=== PATIENT | female | born 1990 | race African-American/Black ===

== ENCOUNTER 2023-01-15 08:55 | Emergency (ER) | payer OTHER ==
[~2023-01-15] VITALS: Ht 160 cm; Wt 99.3 kg
== END 2023-01-15 09:33 | disposition home or self-care (01) ==
LOC: FSED 09:18
DX: G89.11 Acute pain due to trauma (principal); V49.9XXA Car occupant (driver) (passenger) injured in unspecified traffic accident, initial encounter; Y93.I9 Activity, other involving external motion; Y92.410 Unspecified street and highway as the place of occurrence of the external cause; Z33.1 Pregnant state, incidental
CPT/HCPCS: 99282